=== PATIENT | male | born 1990 ===

== ENCOUNTER 2016-12-30 11:44 | Emergency (ER) | payer OTHER ==
[2016-12-30 11:47] VITALS: BP 139/99; PULSE 76; TEMP 98; O2SAT 99
[2016-12-30 11:57] VITALS: BMI 22.1
[2016-12-30] MEDS ORDERED: Naproxen 500 MG TAB PO ONE ×2 (11:57→12:02)
--- NOTE | 2016-12-30 13:16 | RAD ---
PROCEDURE: Left knee dated 12/30/2016 Three views of the left knee performed. HISTORY: Pain. COMPARISON: None. FINDINGS: BONES: No evidence of acute displaced fracture nor dislocation. JOINTS: Tiny posterior patellar osteophytes are noted JOINT EFFUSION: Suspect trace suprapatellar joint effusion. OTHER FINDINGS: None. IMPRESSION: No acute displaced fracture nor dislocation. . Small posterior patellar osteophyte formation with suspected trace suprapatellar joint effusion.
--- NOTE | 2016-12-30 13:20 | ED PDOC ---
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 Patient states localized pain. There is no obvious deformity or decreased ROM) Past Medical History Reviewed: Historical Data, Nursing Documentation, Vital Signs Vital Signs: Last Vital Signs Temp 98 F 12/30/16 11:46 Pulse 76 12/30/16 11:46 Resp BP 139/99 H 12/30/16 11:46 Pulse Ox 99 12/30/16 11:46 - Medical History PMH: No Chronic Diseases - Surgical History Surgical History: No Surg Hx - Family History Family History: States: No Known Family Hx - Living Arrangements Living Arrangements: With Family - Social History Current smoker - smoking cessation education provided: No Alcohol: Occasional - Home Medications Home Medications: Ambulatory Orders Medication Instructions Recorded Naproxen [Naprosyn] 500 mg PO BID PRN #20 tablet 12/30/16 - Allergies Allergies/Adverse Reactions: Allergies Allergy/AdvReac Type Severity Reaction Status Date / Time No Known Allergies Allergy Verified 12/30/16 11:56 Review of Systems ROS Statement: Except As Marked, All Systems Reviewed And Found Negative Musculoskeletal: Positive for: Other (left knee pain - laterally) Physical Exam - Reviewed Nursing Documentation Reviewed: Yes Vital Signs Reviewed: Yes - Physical Exam Appears: Positive for: Well, Non-toxic, No Acute Distress Head Exam: Positive for: ATRAUMATIC, NORMAL INSPECTION, NORMOCEPHALIC Skin: Positive for: Normal Color, Warm, DRY Eye Exam: Positive for: Normal appearance Neck: Positive for: Normal, Painless ROM Cardiovascular/Chest: Positive for: Regular Rate, Rhythm Respiratory: Positive for: CNT, Normal Breath Sounds Gastrointestinal/Abdominal: Positive for: Normal Exam, Bowel Sounds, Soft Back: Positive for: Normal Inspection Extremity: Positive for: Normal ROM, Tenderness. Negative for: Pedal Edema, Deformity, Swelling Neurologic/Psych: Positive for: Alert, Oriented - ECG O2 Sat by Pulse Oximetry: 99 - Radiology X-Ray: Viewed By Me, Read By Radiologist X-Ray Interpretation: No Acute Disease Disposition - Clinical Impression Clinical Impression: Contusion of left knee - Patient ED Disposition Is Patient to be Admitted: No Doctor Will See Patient In The: Office Counseled Patient/Family Regarding: Diagnosis, Need For Followup, Rx Given - Disposition Referrals: [facility] [Outside] [facility] [Outside] Disposition: Routine/Home Disposition Time: 13:22 Condition: STABLE Prescriptions: Naproxen [Naprosyn] 500 mg PO BID PRN #20 tablet PRN Reason: Pain, Moderate (4-7) Instructions: Contusion in Adults (ED) Print Language: INDIAN - POA Present On Arrival: Falls Or Trauma
== END 2016-12-30 14:00 | disposition home or self-care (01) ==
LOC: H.ER 11:44
DX: S80.02XA Contusion of left knee, initial encounter (principal); W22.8XXA Striking against or struck by other objects, initial encounter; Y99.0 Civilian activity done for income or pay